=== PATIENT | female | born 1975 | race Two or more races ===

== ENCOUNTER 2025-03-07 13:30 | Emergency (ER) | payer OTHER ==
[~2025-03-07] VITALS: Ht 160 cm; Wt 56.7 kg
[~2025-03-07 13:30] MED LIST: BACTRIM DS TAB1 EACH PO; CELEBREX100 MG PO; DIAZEPAM10 MG PO; PEPCID AC20 MG PO; PYRIDIUM200 MG PO; SYNTHROID112 MCG PO; SYNTHROID150 MCG PO; TRINESSA1 TAB PO; ZITHROMAX TRI-500 MG PO
[2025-03-07] MEDS ORDERED: RESTORA CAPSUL1 EACH PO (13:50)
[2025-03-07] MEDS ORDERED: 0.9 % SODIUM CHLORIDE 1,000 ML IV SCH (14:15)
[2025-03-07] MEDS ORDERED: BARIUM SULFATE 450 ML ORAL.SUSP PO ONE (15:07)
[2025-03-07 15:31] LABS: BASO % 0.1 % (0.1-1.2); EOS # 0.03 (0.04-0.54); EOS % 0.3 % (0.7-7.0); HEMATOCRIT 35.2 % (34.1-44.9); HEMOGLOBIN 11.6 g/dL (11.2-15.7); LYMPH # 0.63 (1.18-3.74); LYMPH % 6.4 % (19.3-53.1); MEAN CORPUSCULAR HEMOGLOBIN 27.7 pg (25.6-32.2); MONO # 0.24 (0.24-0.82); MONO % 2.4 % (4.7-12.5); NEUT % 90.5 % (34.0-71.1); PLATELET COUNT 336 K/uL (163-369); RED BLOOD COUNT 4.19 M/uL (3.93-5.22); RED CELL DISTRIBUTION WIDTH 13.1 % (11.6-14.4)
[2025-03-07 16:08] LABS: CALCIUM 9.1 mg/dL (8.5-10.1); CREATININE SERUM 0.41 mg/dL (0.55-1.02); GFR 162.9; POTASSIUM 3.94 mEq/L (3.5-5.1)
[2025-03-07 17:31] LABS: URINE APPEARANCE Clear; URINE BILIRRUBIN Negative (NEGATIVE); URINE BLOOD Moderate; URINE COLOR Yellow; URINE GLUCOSE Negative (NEGATIVE); URINE LEUKOCYTE Negative; URINE NITRATE Negative; URINE PROTEIN Negative (NEGATIVE); URINE UROBILINOGEN 0.2 E.U./dl
[2025-03-07 17:35] LABS: URINE BACTERIA 14.6 uL (0.0-1933); URINE EPITHELIAL CELLS 8.6 uL (0.0-38.8); URINE RBC 86.4 uL (0.0-20.8); URINE WBC 3.6 uL (0.0-23.2)
[2025-03-07 18:09] LABS: URINE KETONE 40 (NEGATIVE)
[2025-03-07] MEDS ORDERED: FAMOTIDINE/PF 20 MG in 0.9 % SODIUM CHLORIDE 8 ML IV PUSH STA (19:14)
[2025-03-07] MEDS ORDERED: DIPHENOXYLATE HCL/ATROPINE 1 UDTAB TABLET PO ONE (19:15)
[2025-03-07] MEDS ORDERED: ONDANSETRON HCL 2 MG/ML VIAL IV ONE (19:15)
[2025-03-07] MEDS ORDERED: METRONIDAZOLE500 MG PO (19:17)
[2025-03-07] MEDS ORDERED: ONDANSETRON HCL 2 MG/ML VIAL ONE (19:17)
[2025-03-07] MEDS ORDERED: CIPRO500 MG PO (19:17)
[2025-03-07] MEDS ORDERED: FAMOTIDINE/PF 20 MG/2 ML VIAL ONE (19:17)
[2025-03-07] MEDS ORDERED: INTESTINEX680 M1 PO (19:17)
[2025-03-07] MEDS ORDERED: PEPCID AC20 MG PO (19:17)
[2025-03-07] MEDS ORDERED: LEVSIN/SL0.125 MG SL (19:17)
== END 2025-03-07 21:19 | disposition home or self-care (01) ==
LOC: ER 13:30
PROVIDERS: Emergency Medicine
DX: R10.9 Unspecified abdominal pain (principal); Z88.0 Allergy status to penicillin; Z91.013 Allergy to seafood; E78.00 Pure hypercholesterolemia, unspecified; E03.8 Other specified hypothyroidism; I88.0 Nonspecific mesenteric lymphadenitis
CPT/HCPCS: 74177; Q9965

== ENCOUNTER 2025-05-30 04:19 | Emergency (ER) | payer OTHER ==
[~2025-05-30] VITALS: Ht 160 cm; Wt 53.5 kg
[~2025-05-30 04:19] MED LIST changes: +CIPRO500 MG PO; +INTESTINEX680 M1 PO; +LEVSIN/SL0.125 MG SL; +METRONIDAZOLE500 MG PO; +RESTORA CAPSUL1 EACH PO
[2025-05-30] MEDS ORDERED: FAMOTIDINE/PF 20 MG/2 ML VIAL IV PUSH STA (05:43)
[2025-05-30] MEDS ORDERED: PROMETHAZINE HCL 50 MG/ML AMPUL IM STA (05:43)
[2025-05-30] MEDS ORDERED: 0.9 % SODIUM CHLORIDE 1,000 ML IV ONE (05:45)
[2025-05-30 07:17] LABS: ALT/SGPT 19.0 U/L (12-78); AST/SGOT 21.0 U/L (15-37); BILIRUBIN TOTAL 0.24 mg/dL (0.3-1.2); BUN CREA RATIO 13.0 (7.0-25.0); CREATININE SERUM 0.48 mg/dL (0.55-1.02); GFR 135.81; GLOBULINA 3.4 G/DL (2.4-3.5); GLUCOSE FASTING 112.0 mg/dL (65-100); OSMOLALITY SERUM 278.0 MOSM/KG (275-295)
[2025-05-30 07:19] LABS: URINE APPEARANCE Clear; URINE BILIRRUBIN Negative (NEGATIVE); URINE BLOOD Moderate; URINE COLOR Yellow; URINE GLUCOSE Negative (NEGATIVE); URINE KETONE Negative (NEGATIVE); URINE LEUKOCYTE Negative; URINE NITRATE Negative; URINE PROTEIN Negative (NEGATIVE); URINE UROBILINOGEN 0.2 E.U./dl
[2025-05-30 07:21] LABS: URINE EPITHELIAL CELLS 2.2 uL (0.0-38.8); URINE RBC 47.6 uL (0.0-20.8); URINE WBC 2.1 uL (0.0-23.2)
[2025-05-30 07:22] LABS: INR 1.01
[2025-05-30 07:31] LABS: URINE BACTERIA 3.6 uL (0.0-1933); URINE CAST 0.00 uL (0.0-1.40)
[2025-05-30 07:46] LABS: BASO % 0.2 % (0.1-1.2); EOS # 0.05 (0.04-0.54); EOS % 0.6 % (0.7-7.0); LYMPH # 2.11 (1.18-3.74); LYMPH % 24.0 % (19.3-53.1); MEAN PLATELET VOLUME 10.20 fl (9.4-12.4); MONO # 0.72 (0.24-0.82); MONO % 8.2 % (4.7-12.5); NEUT # 5.87 (1.56-6.13); NEUT % 66.8 % (34.0-71.1); RED CELL DISTRIBUTION WIDTH 13.3 % (11.6-14.4)
[2025-05-30 07:48] LABS: COVID-19 AG POSITIVE (NEGATIVE)
[2025-05-30] MEDS ORDERED: CIPROFLOXACIN IN 5 % DEXTROSE 400 MG/200 ML PIGGYBAG IV ONE (09:15)
[2025-05-30] MEDS ORDERED: METRONIDAZOLE/SODIUM CHLORIDE 500 MG/100 ML PIGGYBACK IV ONE (09:15)
== END 2025-05-30 13:27 | disposition home or self-care (01) ==
LOC: ER 04:24
PROVIDERS: General Practice
DX: U07.1 COVID-19 (principal); K52.9 Noninfective gastroenteritis and colitis, unspecified; K62.5 Hemorrhage of anus and rectum; K76.89 Other specified diseases of liver; Z88.0 Allergy status to penicillin; Z91.013 Allergy to seafood

== ENCOUNTER → 2025-08-09 | Emergency (ER) | payer OTHER ==
[~2025-08-09] VITALS: Ht 160 cm; Wt 53.5 kg
[~2025-08-09] MED LIST changes: +DEXAMETHASONE SODIUM PHOSPHATE 4 MG/ML VIAL IM ONE; +DEXAMETHASONE SODIUM PHOSPHATE 4 MG/ML VIAL ONE; +KETOROLAC TROMETHAMINE 30 MG VIAL IM ONE; +KETOROLAC TROMETHAMINE 30 MG VIAL ONE; +ORPHENADRINE CITRATE 30 MG/ML AMPUL IM ONE; +ORPHENADRINE CITRATE 30 MG/ML AMPUL ONE
[2025-08-09 22:15] LABS: BASO % 0.7 % (0.1-1.2); EOS # 0.18 (0.04-0.54); EOS % 2.4 % (0.7-7.0); LYMPH # 2.50 (1.18-3.74); LYMPH % 33.8 % (19.3-53.1); MEAN PLATELET VOLUME 9.60 fl (9.4-12.4); MONO # 0.94 (0.24-0.82); NEUT # 3.70 (1.56-6.13); NEUT % 50.1 % (34.0-71.1); RED CELL DISTRIBUTION WIDTH 13.2 % (11.6-14.4)
[2025-08-09 22:19] LABS: ERYTHROCYTE SEDIMENTATION RATE 43 mm/hr (0-30); MONO % 12.7 % (4.7-12.5)
[2025-08-09 22:36] LABS: INR 0.98
[2025-08-09 22:40] LABS: ALT/SGPT 19.0 U/L (12-78); AST/SGOT 15.0 U/L (15-37); BILIRUBIN TOTAL 0.3 mg/dL (0.3-1.2); BUN CREA RATIO 25.0 (7.0-25.0); CREATININE SERUM 0.55 mg/dL (0.55-1.02); GFR 116.07; GLOBULINA 3.7 G/DL (2.4-3.5); GLUCOSE FASTING 94.0 mg/dL (65-100); OSMOLALITY SERUM 281.0 MOSM/KG (275-295)
[2025-08-09 23:15] LABS: URINE APPEARANCE Clear; URINE BILIRRUBIN Negative (NEGATIVE); URINE BLOOD Small; URINE COLOR Yellow; URINE GLUCOSE Negative (NEGATIVE); URINE KETONE Negative (NEGATIVE); URINE LEUKOCYTE Trace; URINE NITRATE Negative; URINE PROTEIN Negative (NEGATIVE); URINE UROBILINOGEN 0.2 E.U./dl
[2025-08-09 23:19] LABS: URINE RBC 40.0 uL (0.0-20.8); URINE WBC 6.2 uL (0.0-23.2)
[2025-08-09 23:20] LABS: URINE BACTERIA 2.3 uL (0.0-1933); URINE CAST 0.00 uL (0.0-1.40); URINE EPITHELIAL CELLS 1.0 uL (0.0-38.8)
== END | disposition left against medical advice (07) ==
LOC: ER 20:29
DX: M25.511 Pain in right shoulder (principal); Z88.0 Allergy status to penicillin; Z91.013 Allergy to seafood